=== PATIENT | male | born 1980 | race African-American/Black ===

== ENCOUNTER → 2020-05-14 | Outpatient (REF) | payer OTHER, SELFPAY | LOC: M LAB REF 15:54 | PROVIDERS: ATTEND Physician Assistant | DX: R30.0 Dysuria (principal) ==

== ENCOUNTER → 2022-02-23 | Outpatient (REF) | payer SELFPAY ==
[2022-02-23 15:54] LABS: GC DNA AMPLIFICATION NEGATIVE (NEGATIVE)
== END ==
LOC: M LAB REF 12:28
PROVIDERS: ATTEND Physician Assistant
DX: A59.9 Trichomoniasis, unspecified (principal)

== ENCOUNTER → 2024-02-01 | Outpatient (REF) | payer SELFPAY ==
[2024-02-01 20:43] LABS: Trichomonas vaginalis (AMP) POSITIVE (NEGATIVE)
[2024-02-01 21:07] LABS: GC DNA AMPLIFICATION NEGATIVE (NEGATIVE)
== END ==
LOC: M LAB REF 16:16
PROVIDERS: ATTEND Nurse Practitioner Family
DX: Z11.3 Encounter for screening for infections with a predominantly sexual mode of transmission (principal); R30.0 Dysuria